=== PATIENT | female | born 2000 | race Caucasian/White ===

== ENCOUNTER 2021-08-28 13:43 | Emergency (ER) | payer OTHER, SELFPAY ==
[2021-08-28 13:58] VITALS: BP 142/65; PULSE 92; RESP 16; TEMP 36.8; O2SAT 100
--- NOTE | 2021-08-28 14:06 | ED.HA ---
HPI - Headache General Chief Complaint: Headache Stated Complaint: mandujano Source: patient Mode of arrival: ambulatory Limitations: no limitations History of Present Illness HPI Narrative: 21 y/o female presented for c/o headache for 3 days with photophobia. Endorses history of migraines. States pain 8/10, one episode of nausea/vomiting this morning. LMP 'beginning of last month.' Denies cough, sob, wheezing, diarrhea, fever/chills. Related Data Home Medications Medication Instructions Recorded Confirmed No Home Medications 08/28/21 08/28/21 Allergies Allergy/AdvReac Type Severity Reaction Status Date / Time No Known Allergies Allergy Unverified 02/23/16 14:47 Review of Systems Review of Systems: CONSTITUTIONAL: Denies body aches, fever, chills, or sweats. EYES: Denies redness, or discharge. ENT: Denies rhinorrhea, congestion, sore throat, or otalgia. CARDIOVASCULAR: Denies chest pain, palpitations, or edema. RESPIRATORY: Denies cough or dyspnea. GASTROINTESTINAL: Denies abdominal pain GENITOURINARY: Denies dysuria or hematuria. MUSCULOSKELETAL: Denies back pain, joint pain, or myalgia. NEUROLOGIC: Denies numbness, tingling, or weakness. All systems reviewed & are unremarkable except as noted in HPI and below PMFSH Comments At time of signature, I have reviewed and agree with nursing past medical, surgical, social and family history unless otherwise noted. Please see nursing chart for further information. There is no relevant family history pertinent to the presenting complaint Exam Narrative: GENERAL: appears in pain nontoxic HEAD: Normocephalic, atraumatic. EYES: EOMI. No redness or drainage. Conjunctivae normal. ENT: Mucous membranes pink and moist. No rhinorrhea. TMs normal bilaterally. Throat normal. Uvula midline. CHEST: No respiratory distress. Clear to auscultation. HEART: Regular rate and rhythm. No murmur appreciated. Normal peripheral pulses. ABDOMEN: Soft, nontender, nondistended, normal active bowel sounds. SKIN: Warm, dry, no rash. Capillary refill normal. Normal skin turgor. NEURO: No focal deficits. Alert and oriented x3. Gait steady. Course Course Emergency Course: Patient is aware of diagnosis, understands and agrees to treatment plan. Anticipatory guidance given. Patient agrees to follow-up as directed and is aware of reasons to seek care at the emergency department. Portions of this record may have been created with voice recognition software Level of Care: Express Care Visit Vital Signs Vital signs: Vital Signs Temperature 98.3 F 08/28/21 13:58 Pulse Rate 92 08/28/21 13:58 Respiratory Rate 16 08/28/21 13:58 Blood Pressure 142/65 H 08/28/21 13:58 Pulse Oximetry 100 08/28/21 13:58 Oxygen Delivery Room Air 08/28/21 13:58 Temperature 98.3 F 08/28/21 13:58 Pulse Rate 92 08/28/21 13:58 Respiratory Rate 16 08/28/21 13:58 Blood Pressure 142/65 H 08/28/21 13:58 Pulse Oximetry 100 08/28/21 13:58 Oxygen Delivery Room Air 08/28/21 13:58 MDM - Headache MDM Narrative Medical decision making narrative: urine preg neg. IM toradol given, pt reassessed, reports improvement in pain. advised to establish with PCP due to hx chronic migraines. Advised supportive measures and signs/symptoms to go to the ER. Pt is appropriate for outpt treatment and f/u. Differential Diagnosis Differential diagnosis: Likely migraine, tension headache, headache and sinusitis Lab Data Labs: UCG Bedside Result Negative Reference Range: Negative Discharge Plan Discharge Clinical Impression: Headache Qualifiers: Headache type: unspecified Headache chronicity pattern: acute headache Intractability: not intractable Qualified Code(s): R51.9 - Headache, unspecified Patient Disposition: Home, Self-Care Condition: Stable Instructions: Antibiotic Form, Migraine Headache (ED) Addition
--- NOTE | 2021-08-28 14:24 | PC.NURSE ---
in br to obtain ua spec. aware of need to do bedside preg. prior to pain med.
[2021-08-28] MEDS: KETOROLAC (*BKC) 60 MG/2 ML VIAL IM (14:42)
== END 2021-08-28 15:15 | disposition home or self-care (01) ==
PROVIDERS: Emergency Provider Nurse Practitioner Family
DX: R51.9 Headache, unspecified (principal)
CPT/HCPCS: 81025; 96372; 99213; G0463; J1885

== ENCOUNTER 2021-09-28 13:38 | Emergency (ER) | payer OTHER, SELFPAY ==
--- NOTE | ~2021-09-28 | XR_ITS ---
EXAMINATION: XR chest 2V 09/28/2021 14:00 INDICATION: Shortness of breath. Asthma. PROCEDURE: 2 view chest COMPARISON: No prior studies for comparison. FINDINGS: The lungs are clear. The cardiomediastinal silhouette is within normal limits. There are no pleural effusions. There is no pneumothorax suspected. IMPRESSION: 1: NO ACUTE CARDIOPULMONARY DISEASE. Reviewed, dictated and finalized at location A.
--- NOTE | 2021-09-28 13:40 | ED.SOB ---
HPI - SOB/Dyspnea General Chief Complaint: Upper Respiratory Infection Stated Complaint: Shortness of Breath Time Seen by Provider: 09/28/21 13:39 Source: patient Mode of arrival: ambulatory Limitations: no limitations History of Present Illness HPI Narrative: Carmen is a 21-year-old female patient presenting to the clinic today with complaints of shortness of breath x1 day. She reports this happened earlier in the week and she had pain to the lower ribs. Had what she thought was maybe an anxiety attack this morning and was hyperventilating and developed pain to the center of the chest and to the lower ribs. She reports pain was sharp and stabbing. This happened while she is at work today. Reports the pain is worse with taking a deep breath. States the pain is currently in the mid center of her chest and under the left axilla. She does smoke THC but denies cigarette use or vaping. Related Data Allergies Allergy/AdvReac Type Severity Reaction Status Date / Time No Known Allergies Allergy Unverified 09/28/21 13:46 Review of Systems Review of Systems: Pertinent positives per HPI. Patient denies any fever, chills, rash, headache, visual changes, dizziness, cough, runny nose, sore throat, chest pain, palpitations, nausea, vomiting, diarrhea, constipation, abdominal pain, or any urinary issues. PMFSH Comments At the time of my signature, I reviewed and agree with the nursing past medical, surgical, social, and family history. There is no relevant family history pertinent to the patient complaint. Exam Narrative: General: Well-developed, well nourished, in no apparent distress Head: Normocephalic, atraumatic Eyes: Pupils equally round and reactive to light bilaterally, EOM intact, sclera and conjunctive clear, no discharge, lids normal Ears: TMs intact and clear, ear canals clear, no drainage, grossly hearing normal. Nose: Nares patent, no discharge, no inflammation, no sinus tenderness. Mouth: Oropharynx without lesions or masses, good dentition, MMM. Neck: Supple, trachea midline, no enlargement of anterior or posterior cervical nodes, no thyroid masses or goiter palpable. Chest: Normal appearance, even rise and fall of chest when breathing, tenderness to palpation over the mid sternum and over the upper left lateral rib/chest wall Cardio: Regular rate and rhythm, s1 and s2 normal, no murmur appreciated. Resp: Clear to auscultation bilaterally anteriorly and posteriorly, no rhonchi, rales, wheezing or rubs Course Course Emergency Course: Portions of this record may have been created with voice recognition software. Level of Care: Express Care Visit Vital Signs Vital signs: Vital signs reviewed MDM - SOB/Dyspnea MDM Narrative Medical decision making narrative: At the time of visit patient is resting comfortably on the exam table. Checks x-ray was completed and was negative for any signs of pneumothorax or pneumonia. I suspect the patient has acute chest wall pain with anxiety. Supportive measures were discussed with the patient she voiced understanding of discharge instructions and agrees to treatment plan. Differential Diagnosis Differential diagnosis: Likely other (Chest wall pain, pleurisy, pneumonia, pneumothorax, anxiety) Imaging Data Attestation: I personally reviewed and interpreted this imaging study as follows: My impression: Negative for pneumonia Radiologist's impression: [facility] [address] [place] [address] XRay Report Signed Patient: Chanel Adames : 2000 MR#: [id number] Age/Sex: 21 / F Acct:[id number] Loc: [facility]? ? ADM Date: 09/28/21Attending Dr: Ordering Physician: Polo Valderrama APRN Date of Service: 09/28/21 Procedure(s): XR chest 2V Accession Number(s): [id number] cc: Polo Valderrama APRN; [employer] TECHNICIAN PHYSICIAN~ EXAMINATION: XR chest 2V 09/28/2021 14:00 INDICATION:
[2021-09-28 13:49] VITALS: BP 127/59; PULSE 75; RESP 16; TEMP 37.3; O2SAT 100
== END 2021-09-28 14:10 | disposition home or self-care (01) ==
PROVIDERS: Emergency Provider Nurse Practitioner Family
DX: R07.9 Chest pain, unspecified (principal); F41.9 Anxiety disorder, unspecified
CPT/HCPCS: 71046; 99213; G0463

== ENCOUNTER 2022-06-18 18:16 | Emergency (ER) | payer OTHER, SELFPAY ==
--- NOTE | 2022-06-18 18:19 | ED.EAR ---
HPI - Ear Problem General Chief complaint: Ear Stated complaint: Ears Irritation Time Seen by Provider: 06/18/22 18:18 Source: patient Mode of arrival: ambulatory Limitations: no limitations History of Present Illness HPI Narrative: Chanel is a 22-year-old female patient presenting to the clinic today with complaints of bilateral ear pain times 3-4 days. She reports she believes her ears are impacted as she has had decrease in hearing. Feels as though there is pressure in her ears. Related Data Allergies Allergy/AdvReac Type Severity Reaction Status Date / Time No Known Allergies Allergy Verified 06/18/22 18:19 Review of Systems Review of Systems: Pertinent positives per HPI. Patient denies any fever, chills, rash, headache, visual changes, dizziness, cough, shortness of breath, chest pain, palpitations, nausea, vomiting, diarrhea, constipation, abdominal pain, or any urinary issues. PMFSH Comments At the time of my signature, I reviewed and agree with the nursing past medical, surgical, social, and family history. There is no relevant family history pertinent to the patient complaint. Exam Narrative: General: Well-developed, well nourished, in no apparent distress Head: Normocephalic, atraumatic Eyes: Pupils equally round and reactive to light bilaterally, EOM intact, sclera and conjunctive clear, no discharge, lids normal Ears: TMs intact and congestion with mild bulging, ear canals clear, no drainage, grossly hearing normal. Nose: Nares patent, clear nasal discharge, no inflammation, no sinus tenderness. Mouth: Oral pharynx without lesions or masses, good dentition, MMM. Neck: Supple, trachea midline, no enlargement of anterior or posterior cervical nodes, no thyroid masses or goiter palpable. Cardio: Regular rate and rhythm, s1 and s2 normal, no murmur appreciated. Resp: Clear to auscultation bilaterally, no rhonchi, rales, wheezing or rubs Course Course Emergency Course: Portions of this record may have been created with voice recognition software. Level of Care: Express Care Visit Vital Signs Vital signs: Vital signs reviewed Medical Decision Making MDM Narrative Medical decision making narrative: At the time of visit patient is resting comfortably on exam table. I suspect patient is eustachian tube dysfunction and URI. Prescription for prednisone was sent to the pharmacy and supportive measures were discussed with the patient she voiced understanding discharge instructions agrees to treatment plan. Differential Diagnosis Differential Diagnosis: Otitis media, otitis externa, eustachian tube dysfunction, cerumen impaction, upper respiratory infection Discharge Plan Discharge Clinical Impression: Acute dysfunction of both eustachian tubes URI (upper respiratory infection) Qualifiers: URI type: unspecified viral URI Qualified Code(s): J06.9 - Acute upper respiratory infection, unspecified Patient Disposition: Home, Self-Care Condition: Stable Instructions: Antibiotic Form, Upper Respiratory Infection (ED), Earache (ED) Additional Instructions: Take prescription medications only as prescribed-prednisone Increase fluids and stay well hydrated Tylenol/motrin for pain/fever Flonase and OTC antihistamines as directed Vicks vapor rub to open sinuses Sinus rinses for congestion Cepacol spray, cough drops, throat lozenges, warm tea with honey/lemon, gargle salt water to soothe throat BRAT diet for diarrhea Clear liquids x 24 hours then advance as tolerated for nausea/vomiting Go to the ED if you develop a worsening in your condition- high fever not controlled by Tylenol or Motrin, dehydration, weakness, lethargy, shortness of breath, or chest pain. Follow up with your PCP in 3-5 days if symptoms persist. Prescriptions: New prednisone 20 mg tablet 40 mg PO DAILY 5 Days Qty: 10 0RF Follow-up/Referrals: PHYSICIAN,PACKAGING ASSOCIATE [Primary Care Provider] Gonzalo Saldana
[2022-06-18 18:20] VITALS: BP 127/70; PULSE 83; RESP 16; TEMP 37.7; O2SAT 100
== END 2022-06-18 18:32 | disposition home or self-care (01) ==
PROVIDERS: Emergency Provider Nurse Practitioner Family
DX: H69.93 Unspecified Eustachian tube disorder, bilateral (principal); J06.9 Acute upper respiratory infection, unspecified
CPT/HCPCS: 99213; G0463